=== PATIENT | female | born 1985 | race African-American/Black ===

== ENCOUNTER 2018-01-18 12:44 | Emergency (ER) | payer SELFPAY | END 2018-01-18 17:00 | disposition left against medical advice (07) | LOC: ER 12:44 | DX: Z53.21 Procedure and treatment not carried out due to patient leaving prior to being seen by health care provider (principal) ==

== ENCOUNTER 2018-02-04 12:48 | Emergency (ER) | payer MEDICAID ==
[~2018-02-04] VITALS: Ht 165.1 cm; Wt 50.0 kg
[2018-02-04 16:25] VITALS: BP 112/68
== END 2018-02-04 16:34 | disposition home or self-care (01) ==
LOC: ER 13:30
DX: M25.561 Pain in right knee (principal); M79.89 Other specified soft tissue disorders
CPT/HCPCS: 73562; 81025; 99284

== ENCOUNTER 2018-06-21 11:42 | Emergency (ER) | payer MEDICAID ==
[~2018-06-21] VITALS: Ht 154.9 cm; Wt 49.0 kg
[2018-06-21] MEDS ORDERED: SODIUM CHLORIDE 0.9% 1,000 ML IV ONE (13:36)
[2018-06-21] MEDS ORDERED: ONDANSETRON HCL 4MG/2ML INJ IV ONE (13:45)
[2018-06-21] MEDS ORDERED: MAGNESIUM/ALUMINUM HYDROXIDE/SIMETHICONE 30ML UDC PO ONE (13:45)
[2018-06-21 14:17] LABS: CLARITY URINE CLEAR (CLEAR); COLOR URINE YELLOW (YELLOW); KETONES URINE TRACE (NEGATIVE); LEUKOCYTE ESTERASE URINE NEGATIVE (NEGATIVE); NITRITE URINE NEGATIVE (NEGATIVE); OCCULT BLOOD URINE TRACE (NEGATIVE); PH URINE 6.5 (4.5-8.0); PROTEIN URINE NEGATIVE (NEGATIVE); SPECIFIC GRAVITY URINE 1.029 (1.005-1.030)
[2018-06-21 15:05] LABS: HEMATOCRIT. 43.4 % (36.0-48.0); HEMOGLOBIN. 14.5 g/dL (12.0-16.0); MEAN CORPUSCULAR HEMOGLOBIN 30.4 pg (28.0-32.0); MEAN CORPUSCULAR VOLUME 91.2 fL (81.0-99.0); MEAN PLATELET VOLUME 8.3 fl (7.4-10.4); PLATELET 180 x1000/uL (130-400); RED BLOOD CELL COUNT 4.75 mill/uL (4.2-5.4); RED CELL DISTRIBUTION WIDTH 12.9 % (11.6-14.6)
[2018-06-21 15:09] LABS: CHLORIDE 106 mEq/L (98-107)
[2018-06-21 15:15] VITALS: BP 112/62
[2018-06-21 15:19] LABS: B-HCG QUANTITATIVE 198 mIU/mL (<3)
[2018-06-21 15:37] LABS: PLATELET ESTIMATE NORMAL
== END 2018-06-21 15:45 | disposition home or self-care (01) ==
LOC: ER 11:42
DX: O26.899 Other specified pregnancy related conditions, unspecified trimester (principal)
CPT/HCPCS: 36415; 76801; 76817; 80048; 81003; 84702; 85025; 96361; 96374; 99284; J2405; J7030

== ENCOUNTER 2018-06-28 14:37 | Emergency (ER) | payer MEDICAID ==
[~2018-06-28] VITALS: Ht 165.1 cm; Wt 46.0 kg
[2018-06-28 15:11] VITALS: BP 99/61
== END 2018-06-28 19:00 | disposition left against medical advice (07) ==
LOC: ER 17:17
DX: Z53.21 Procedure and treatment not carried out due to patient leaving prior to being seen by health care provider (principal)
CPT/HCPCS: 81025

== ENCOUNTER 2018-06-28 20:29 | Emergency (ER) | payer MEDICAID ==
[~2018-06-28] VITALS: Ht 154.9 cm; Wt 48.0 kg
[2018-06-29 00:04] VITALS: BP 101/65
== END 2018-06-29 00:04 | disposition home or self-care (01) ==
LOC: ER 20:29
DX: O00.90 Unspecified ectopic pregnancy without intrauterine pregnancy (principal); O26.891 Other specified pregnancy related conditions, first trimester; Z3A.00 Weeks of gestation of pregnancy not specified
CPT/HCPCS: 36415; 76830; 76856; 84702; 99284

== ENCOUNTER 2019-02-04 18:10 | Observation (INO) | payer MEDICAID | END 2019-02-04 19:30 | disposition home or self-care (01) | LOC: L&D 18:10 → 8 EST LDRP 18:38 | PROVIDERS: ADMIT Specialist; ATTEND Specialist | DX: O62.9 Abnormality of forces of labor, unspecified (principal); Z3A.36 36 weeks gestation of pregnancy | CPT/HCPCS: 99281; G0378 ==

== ENCOUNTER 2019-02-11 19:35 | Observation (INO) | payer MEDICAID ==
[~2019-02-11] VITALS: Ht 154.9 cm; Wt 61.7 kg
[2019-02-11 20:49] LABS: CLARITY URINE CLEAR (CLEAR); COLOR URINE DARK YELLOW (YELLOW); KETONES URINE NEGATIVE (NEGATIVE); LEUKOCYTE ESTERASE URINE NEGATIVE (NEGATIVE); NITRITE URINE NEGATIVE (NEGATIVE); OCCULT BLOOD URINE NEGATIVE (NEGATIVE); PROTEIN URINE NEGATIVE (NEGATIVE); SPECIFIC GRAVITY URINE 1.021 (1.005-1.030)
== END 2019-02-11 22:15 | disposition home or self-care (01) ==
LOC: 8 EST LDRP 19:35
PROVIDERS: ADMIT Obstetrics & Gynecology; ATTEND Obstetrics & Gynecology
DX: O62.9 Abnormality of forces of labor, unspecified (principal); Z3A.37 37 weeks gestation of pregnancy
CPT/HCPCS: 76805; 76818; 81003; 99281; G0378

== ENCOUNTER 2019-02-21 00:01 | Inpatient (IN) | payer MEDICAID ==
[~2019-02-21] VITALS: Ht 154.9 cm; Wt 61.7 kg
[2019-02-21] MEDS ORDERED: LIDOCAINE HCL 1% 20ML VIAL (Pyxis) INJ INFIL SCH (01:15)
[2019-02-21] MEDS ORDERED: NALOXONE HCL 0.4 MG/ML 1ML VIAL IM PRN (01:15)
[2019-02-21] MEDS ORDERED: DEXT 5%/LR + PITOCIN 20UNITS/L 1,000 ML IV SCH ×2 (01:15→08:21)
[2019-02-21] MEDS ORDERED: BUTORPHANOL TARTRATE 2 MG/ML VIAL IV PRN (01:15)
[2019-02-21] MEDS ORDERED: CARBOPROST TROMETHAMINE 250 MCG/ML AMPUL IM PRN (01:15)
[2019-02-21] MEDS ORDERED: METHYLERGONOVINE MALEATE 0.2 MG/ML IM PRN (01:15)
[2019-02-21] MEDS ORDERED: PENICILLIN G POTASSIUM 5 MMU in DEXT 5% WATER 100 ML IV SCH (02:00)
[2019-02-21 02:57] LABS: BASOPHILS % 0.4 % (0.0-2.0); EOSINOPHILS % 0.5 % (0.0-5.0); HEMATOCRIT. 31.5 % (36.0-48.0); HEMOGLOBIN. 10.2 g/dL (12.0-16.0); LYMPHOCYTES % 15.6 % (20.0-50.0); MEAN CORPUSCULAR HEMOGLOBIN 26.4 pg (28.0-32.0); MEAN CORPUSCULAR VOLUME 81.7 fL (81.0-99.0); MONOCYTES % 5.9 % (2.0-8.0); NEUTROPHILS % 77.6 % (40.0-76.0); PLATELET 222 x1000/uL (130-400); RED BLOOD CELL COUNT 3.85 mill/uL (4.2-5.4); RED CELL DISTRIBUTION WIDTH 16.3 % (11.6-14.6)
[2019-02-21 03:12] LABS: PARTIAL THROMBOPLASTIN TIME 25.1 sec (23.4-31.0)
[2019-02-21 03:15] LABS: CLARITY URINE CLOUDY (CLEAR); COLOR URINE DARK YELLOW (YELLOW); KETONES URINE TRACE (NEGATIVE); LEUKOCYTE ESTERASE URINE NEGATIVE (NEGATIVE); NITRITE URINE NEGATIVE (NEGATIVE); OCCULT BLOOD URINE NEGATIVE (NEGATIVE); PROTEIN URINE TRACE (NEGATIVE); SPECIFIC GRAVITY URINE 1.028 (1.005-1.030)
[2019-02-21 03:54] LABS: CANNABINOID URINE SCREEN NEGATIVE (NEGATIVE)
[2019-02-21 03:55] LABS: *AMPHETAMINES SCREEN URINE NEGATIVE (NEGATIVE); *BARBITURATES SCREEN URINE NEGATIVE (NEGATIVE); *BENZODIAZEPINES SCREEN URINE NEGATIVE (NEGATIVE); *COCAINE SCREEN URINE NEGATIVE (NEGATIVE); METHADONE URINE SCREEN NEGATIVE (NEGATIVE); OPIATES URINE SCREEN NEGATIVE (NEGATIVE)
[2019-02-21 04:04] LABS: PHENCYCLIDINE URINE SCREEN NEGATIVE (NEGATIVE)
[2019-02-21] MEDS: LACTATED RINGERS 1,000 ML IV SCH ×2 (04:08→05:04)
[2019-02-21] MEDS ORDERED: ROPIVACAINE HCL/PF EPIDURAL 200 ML EPI SCH (05:15)
[2019-02-21 05:32] LABS: HEPATITIS B SURFACE ANTIGEN NEGATIVE
[2019-02-21] MEDS ORDERED: PENICILLIN G POTASSIUM 2.5 MMU in DEXTROSE 5% WATER 50 ML IV SCH (06:00)
[2019-02-21] MEDS ORDERED: PNV1TABL50 MT (07:08)
[2019-02-21] MEDS ORDERED: ACETAMINOPHEN WITH CODEINE 300/30MG TABLET PO PRN ×2 (08:30)
[2019-02-21] MEDS ORDERED: BISACODYL 10MG SUPP PR PRN (08:30)
[2019-02-21] MEDS: IBUPROFEN 400MG TABLET PO PRN ×4 (08:51→22:32)
[2019-02-21 11:15] VITALS: BP 122/81
[2019-02-21] MEDS ORDERED: LIDOCAINE HCL 2%/EPINEPHRINE 1:100,000 20 ML VIAL INFIL ONE (11:35)
[2019-02-21] MEDS ORDERED: EPINEPHRINE 0.1MG/ML (1:10,000) 10ML SYR ONE (11:35)
[2019-02-21 12:15] VITALS: BP 116/68
[2019-02-21 14:30] VITALS: BP 118/74
[2019-02-21] MEDS: MAGNESIUM/ALUMINUM HYDROXIDE/SIMETHICONE 30ML UDC PO SCH (17:44)
[2019-02-21] MEDS: SIMETHICONE 80MG TABLET CHEW PO SCH (17:45)
[2019-02-21 19:30] VITALS: BP 118/65
[2019-02-21] MEDS ORDERED: DOCUSATE SODIUM 100MG CAPSULE PO SCH (21:00)
[2019-02-22 03:51] VITALS: BP 112/60
[2019-02-22 06:54] LABS: BASOPHILS % 0.4 % (0.0-2.0); HEMOGLOBIN. 9.4 g/dL (12.0-16.0); LYMPHOCYTES % 19.4 % (20.0-50.0); MEAN CORPUSCULAR HEMOGLOBIN 26.3 pg (28.0-32.0); MEAN CORPUSCULAR VOLUME 81.1 fL (81.0-99.0); MEAN PLATELET VOLUME 8.5 fl (7.4-10.4); MONOCYTES % 7.3 % (2.0-8.0); NEUTROPHILS % 71.9 % (40.0-76.0); PLATELET 201 x1000/uL (130-400); RED BLOOD CELL COUNT 3.58 mill/uL (4.2-5.4); RED CELL DISTRIBUTION WIDTH 16.3 % (11.6-14.6)
[2019-02-22 08:00] VITALS: BP 103/50
[2019-02-22] MEDS: SIMETHICONE 80MG TABLET CHEW PO SCH ×2 (08:06→13:00)
[2019-02-22] MEDS: MAGNESIUM/ALUMINUM HYDROXIDE/SIMETHICONE 30ML UDC PO SCH ×2 (08:06→12:30)
[2019-02-22] MEDS: IBUPROFEN 400MG TABLET PO PRN (08:08)
== END 2019-02-22 15:45 | disposition home or self-care (01) | DRG 560 ==
LOC: 8 EST LDRP 00:01 → 8EST 11:15
PROVIDERS: ADMIT Obstetrics & Gynecology; ATTEND Obstetrics & Gynecology
PROC: 10D07Z6 Extraction of Products of Conception, Vacuum, Via Natural or Artificial Opening (ICD-10-PCS; principal; 2019-02-21)
PROC: 3E0R3BZ Introduction of Anesthetic Agent into Spinal Canal, Percutaneous Approach (ICD-10-PCS; 2019-02-21)
PROC: 00HU33Z Insertion of Infusion Device into Spinal Canal, Percutaneous Approach (ICD-10-PCS; 2019-02-21)
DX: O76 Abnormality in fetal heart rate and rhythm complicating labor and delivery (principal); D64.9 Anemia, unspecified; O90.81 Anemia of the puerperium; Z37.0 Single live birth; Z3A.38 38 weeks gestation of pregnancy
CPT/HCPCS: 36415; 80305; 81003; 86592; 86703; 86762; 86850; 86900; 87340; J0595; J2540; J2590; J2795; J3490; J7060; J7120